=== PATIENT | female | born 1965 | race African-American/Black ===

== ENCOUNTER 2022-10-23 00:42 | Emergency (ER) | payer SELFPAY ==
[~2022-10-23] VITALS: Ht 162.6 cm; Wt 57.0 kg
[~2022-10-23 00:42] MED LIST: TOPUD PO
[2022-10-23 01:02] VITALS: BP 127/81; PULSE 74; RESP 18; TEMP 99; O2SAT 100
[2022-10-23] MEDS ORDERED: IBUP-2030 MT (03:50)
[2022-10-23] MEDS ORDERED: TOPUD MT (16:02)
== END 2022-10-23 09:38 | disposition home or self-care (01) ==
LOC: ER 01:00
DX: S00.83XA Contusion of other part of head, initial encounter (principal); E78.00 Pure hypercholesterolemia, unspecified; J44.1 Chronic obstructive pulmonary disease with (acute) exacerbation; J45.909 Unspecified asthma, uncomplicated; Z88.0 Allergy status to penicillin; Z86.59 Personal history of other mental and behavioral disorders; Y04.0XXA Assault by unarmed brawl or fight, initial encounter; Y93.89 Activity, other specified; Y92.89 Other specified places as the place of occurrence of the external cause; Y99.8 Other external cause status
CPT/HCPCS: 93971; 99284

== ENCOUNTER 2022-10-23 09:43 | Emergency (ER) | payer SELFPAY ==
[~2022-10-23] VITALS: Ht 157.5 cm; Wt 55.0 kg
[~2022-10-23 09:43] MED LIST changes: +IBUP-2030 MT
[2022-10-23 09:50] VITALS: O2SAT 97
[2022-10-23] MEDS ORDERED: TOPUD MT (16:02)
[2022-10-23 17:09] VITALS: BP 109/75; PULSE 70; RESP 20; TEMP 97.8
== END 2022-10-23 17:10 | disposition home or self-care (01) ==
LOC: ER 09:43
DX: S09.90XA Unspecified injury of head, initial encounter (principal); M54.2 Cervicalgia; J45.909 Unspecified asthma, uncomplicated; J44.1 Chronic obstructive pulmonary disease with (acute) exacerbation; Z88.0 Allergy status to penicillin; Z86.59 Personal history of other mental and behavioral disorders; Y04.0XXA Assault by unarmed brawl or fight, initial encounter; Y93.89 Activity, other specified; Y92.89 Other specified places as the place of occurrence of the external cause; Y99.8 Other external cause status
CPT/HCPCS: 99284

== ENCOUNTER 2023-04-09 20:01 | Emergency (ER) | payer MEDICAID ==
[~2023-04-09] VITALS: Ht 162.6 cm; Wt 70.0 kg
[~2023-04-09 20:01] MED LIST changes: +TOPUD MT
[2023-04-09 20:19] VITALS: O2SAT 100
[2023-04-10 13:40] VITALS: BP 99/64; PULSE 84; RESP 16; TEMP 98.8
[2023-04-10] MEDS ORDERED: DIVA125T2 MT (17:45)
== END 2023-04-10 13:44 | disposition home or self-care (01) ==
LOC: ER 20:01
DX: S09.90XA Unspecified injury of head, initial encounter (principal); M54.2 Cervicalgia; E78.00 Pure hypercholesterolemia, unspecified; J44.1 Chronic obstructive pulmonary disease with (acute) exacerbation; Z88.0 Allergy status to penicillin; Z86.59 Personal history of other mental and behavioral disorders; Y04.0XXA Assault by unarmed brawl or fight, initial encounter; Y93.89 Activity, other specified; Y92.89 Other specified places as the place of occurrence of the external cause; Y99.8 Other external cause status
CPT/HCPCS: 99284

== ENCOUNTER 2023-04-10 14:17 | Emergency (ER) | payer MEDICAID, OTHER ==
[~2023-04-10] VITALS: Ht 162.6 cm; Wt 58.0 kg
[2023-04-10 14:28] VITALS: O2SAT 100
[2023-04-10] MEDS ORDERED: DIVA125T2 MT (17:45)
[2023-04-11 02:00] VITALS: BP 112/66; PULSE 78; RESP 20; TEMP 98.7
== END 2023-04-11 02:28 | disposition home or self-care (01) ==
LOC: ER 14:23
DX: J44.9 Chronic obstructive pulmonary disease, unspecified (principal); E78.00 Pure hypercholesterolemia, unspecified; R56.9 Unspecified convulsions; Z76.0 Encounter for issue of repeat prescription; Z88.0 Allergy status to penicillin
CPT/HCPCS: 99283

== ENCOUNTER 2023-05-20 19:48 | Emergency (ER) | payer OTHER ==
[~2023-05-20] VITALS: Ht 160 cm; Wt 54.0 kg
[~2023-05-20 19:48] MED LIST changes: +DIVA125T2 MT
[2023-05-20 19:53] VITALS: RESP 18; O2SAT 98
[2023-05-20] MEDS: ACETAMINOPHEN 325MG TABLET PO ONE (21:57)
[2023-05-21 01:14] VITALS: BP 115/37; PULSE 74; TEMP 99
[2023-05-21] MEDS ORDERED: ALBU6.7H15 INH (22:09)
== END 2023-05-21 01:17 | disposition home or self-care (01) ==
LOC: ER 19:48
DX: R51.9 Headache, unspecified (principal); J44.89 Other specified chronic obstructive pulmonary disease; E78.00 Pure hypercholesterolemia, unspecified; Z88.0 Allergy status to penicillin; Z86.59 Personal history of other mental and behavioral disorders; Y04.0XXA Assault by unarmed brawl or fight, initial encounter; Y93.89 Activity, other specified; Y92.89 Other specified places as the place of occurrence of the external cause; Y99.8 Other external cause status
CPT/HCPCS: 99291

== ENCOUNTER 2023-05-21 08:25 | Emergency (ER) | payer OTHER ==
[~2023-05-21] VITALS: Ht 152.4 cm; Wt 56.0 kg
[2023-05-21 08:36] VITALS: BP 110/69; PULSE 69; RESP 20; TEMP 98.3; O2SAT 100
[2023-05-21] MEDS: IBUPROFEN 400MG TABLET PO ONE (10:15)
[2023-05-21] MEDS ORDERED: ALBU6.7H15 INH (22:09)
== END 2023-05-21 11:10 | disposition home or self-care (01) ==
LOC: ER 08:25
DX: Z60.9 Problem related to social environment, unspecified (principal); Z59.00 Homelessness unspecified; E78.00 Pure hypercholesterolemia, unspecified; Z88.0 Allergy status to penicillin; Z86.59 Personal history of other mental and behavioral disorders
CPT/HCPCS: 99281

== ENCOUNTER 2023-05-21 16:24 | Emergency (ER) | payer OTHER ==
[~2023-05-21] VITALS: Ht 152.4 cm; Wt 54.0 kg
[2023-05-21 16:25] VITALS: BP 119/81; PULSE 68; RESP 20; TEMP 98.4; O2SAT 100
[2023-05-21] MEDS ORDERED: ALBU6.7H15 INH (22:09)
== END 2023-05-21 22:08 | disposition home or self-care (01) ==
LOC: ER 16:24
DX: J44.9 Chronic obstructive pulmonary disease, unspecified (principal); G40.909 Epilepsy, unspecified, not intractable, without status epilepticus; E78.00 Pure hypercholesterolemia, unspecified; Z76.0 Encounter for issue of repeat prescription; Z88.0 Allergy status to penicillin
CPT/HCPCS: 99283